=== PATIENT | female | born 1970 | race African-American/Black ===

== ENCOUNTER 2020-10-19 15:10 | Emergency (ER) | payer SELFPAY ==
[~2020-10-19] VITALS: Ht 170.2 cm; Wt 57.2 kg
[2020-10-19 15:25] VITALS: BP 136/84
[2020-10-19] MEDS ORDERED: LIDOCAINE 1%/EPI 1:100,000 10 ML VIAL. INJ ONE (16:00)
[2020-10-19] MEDS ORDERED: HYDROcodone/APAP 5/325MG 1 TAB TABLET PO ONE (16:00)
[2020-10-19] MEDS ORDERED: IBUPROFEN 600 MG TABLET. PO ONE (16:00)
[2020-10-19] MEDS ORDERED: SMZ/TMP 800/160MG TABLET. PO ONE (16:00)
[2020-10-19] MEDS ORDERED: SULF1TAB24 PO (17:25)
[2020-10-19] MEDS ORDERED: MUPI22OI2 TP (17:25)
--- NOTE | 2020-10-19 17:27 | PHYS DOC ---
Past History Past Medical History: No Pertinent History Past Surgical History: Other Additional Past Surgical Histo: R-HAND Additional Smoking Information: 1/2 PACK/DAY Alcohol Use: None Adult General Chief Complaint Chief Complaint: SKIN PROBLEM HPI HPI Patient is a 50-year-old female presents to the emergency department with chief complaint of abscess to the left side of her face for the last week. Patient states she seen urgent care after it started on day 2 and was put on a 5-day regimen of antibiotics. Patient states it did not help then became worse. Patient states she took her antibiotics as directed. Patient reports pain to the abscess site, denies any drainage. Patient denies recent fever or chills. Patient denies any other physical complaints or physical concerns. Patient denies allergies to medicines, states she does not take any medications at home, reports her primary care physician at is Dr. Arreguin. Patient denies any other physical complaints or physical concerns. Patient reports her last tetanus immunization was less than 5 years ago. Patient complains of 10 out of 10 pain. Review of Systems Review of Systems 14 body systems of review of systems have been reviewed. See HPI for pertinent positives and negative responses, otherwise all other systems are negative, nonpertinent or noncontributory. Current Medications Current Medications Current Medications Medications (Trade) Dose Ordered Sig/Allyn Start Time Stop Time Status Last Admin Dose Admin Acetaminophen/ Hydrocodone Bitart (Lortab 5/325) 1 tab 1X ONCE 10/19/20 16:00 10/19/20 16:08 DC 10/19/20 16:23 1 TAB Ibuprofen (Motrin) 600 mg 1X ONCE 10/19/20 16:00 10/19/20 16:08 DC 10/19/20 16:23 600 MG Lidocaine/ Epinephrine (Xylocaine 1%-Epi 1:100,000) 10 ml 1X ONCE 10/19/20 16:00 10/19/20 16:08 DC 10/19/20 16:00 10 ML Trimethoprim/ Sulfamethoxazole (Bactrim Ds) 1 tab 1X ONCE 10/19/20 16:00 10/19/20 16:08 DC 10/19/20 16:24 1 TAB Allergies Allergies Allergies Coded Allergies Type Severity Reaction Last Updated Verified No Known Drug Allergies 10/19/20 No Physical Exam Physical Exam Constitutional: Well developed, well nourished, no acute distress, non-toxic appearance. 50-year-old female no apparent distress. HENT: Normocephalic, atraumatic, bilateral external ears normal, oropharynx moist, no oral exudates, nose normal. Patient has 3 cm fluctuant abscess with central punctum to left face just 2 cm lateral to the oral commissure, With mild erythema, nondraining. Eyes: Conjunctiva normal, no discharge appreciated. Neck: Normal range of motion, no tenderness, supple, no stridor. No meningismus signs, no nuchal rigidity. Cardiovascular: No cyanosis appreciated, distal cap refill less than 2 seconds. Lungs & Thorax: Bilateral breath sounds clear to auscultation no adventitious lung sounds appreciated. Skin: Warm, dry, no erythema, no rash. See H EENT note for focused skin assessment. Extremities: No tenderness, no cyanosis, no clubbing, ROM intact, no edema. Neurologic: Alert and oriented X 3, normal motor function, normal sensory function, no focal deficits noted. Psychologic: Affect normal, judgement normal, mood normal. Current Patient Data Vital Signs Vital Signs Date Time Temp Pulse Resp B/P (MAP) Pulse Ox O2 Delivery O2 Flow Rate FiO2 10/19/20 16:23 16 98 10/19/20 15:25 97.9 101 136/84 (101) Room Air EKG EKG [] Radiology/Procedures Radiology/Procedures [] Heart Score C/O Chest Pain: No Risk Factors: Risk Factors: DM, Current or recent (<one month) smoker, HTN, HLP, family history of CAD, obesity. Risk Scores: Risk Factors: DM, Current or recent (<one month) smoker, HTN, HLP, family history of CAD, obesity. Course & Med Decision Making Course & Med Decision Making Pertinent Labs and Imaging studies reviewed. (See chart for details) 50-year-old female, vital signs reviewed, presents emergency department concerning abscess to face for the past week. Please see I&D note. Patient started on Bactrim DS 1 tablet given in ED today. Patient given p.o. pain medication. Patient reports last tetanus immunization less than 5 years ago, tetanus immunization update not indicated in ED today. Patient gave verbal understanding of discharge home instructions, follow-up with primary care for reevaluation of abscess and removal of abscess packing, return to ER precautions and concerns, antibiotic regimen, patient was discharged home without incident. Dragon Disclaimer Dragon Disclaimer This electronic medical record was generated, in whole or in part, using a voice recognition dictation system. Incision and Drainage Indication: Abscess left side of face Procedure: The patient was positioned appropriately and the skin over the incision site was prepped with povidone iodine. Local anesthesia was achieved with 3 cc 1% lidocaine with epinephrine. An incision was then made over the central punctum of abscess and 6 cc of purulent drainage material was expressed. Loculations were disrupted with curved forcep. The drainage cavity was then packed with 1/4 inch iodoform gauze. The patients tetanus status up-to-date prior to patient's arrival to ED, tetanus immunization not indicated for today's visit. The patient tolerated the procedure well. Complications: There were no complications. Departure Departure: Impression: Primary Impression: Abscess of face Disposition: 01 HOME / SELF CARE / HOMELESS Condition: GOOD Referrals: VÍCTOR MILLER MD (PCP) Patient Instructions: Abscess Additional Instructions: You were seen today in the emergency department for an abscess to your face. It required an incision and drainage, I also placed a packing string inside to hold the opening open to assist in the healing process. It is okay if the packing falls out, you may remove it while in the shower in 2 or 3 days. Please follow-up with your primary care physician for reevaluation of your wound soon. I have started you on an oral antibiotic that you will take twice a day for 7 days, I am also prescribing you a topical antibiotic that you will place on 3 times a day. Please return to the emergency department for worsening symptoms or other concerns. EMERGENCY DEPARTMENT GENERAL DISCHARGE INSTRUCTIONS Thank you for coming to [facility] (ED) today and trusting us with you care. We trust that you had a positivie experience in our Emergency Department. If you wish to speak to the department management, you may call the director at [phone]. YOUR FOLLOW UP INSTRUCTIONS ARE FOLLOWS: 1. Do you have a private Doctor? If you do not have a private doctor, please ask for a resource list of physicians or clinics that may be able to assist you with follow up care. 2. The Emergency Physician has interpreted your x-rays. The X-Ray specialist will also review them. If there is a change in the findings, you will be notified in 48 hours when at all possible. 3. A lab test or culture has been done, your results will be reviewed and you will be notified if you need a change in treatment. ADDITIONAL INSTRUCTIONS AND INFORMATION: 1. Your care today has been supervised by a physician who is specially trained in emergency care. Many problems require more than one evaluation for a complete diagnosis and treatment. We recommend that you schedule your follow up appointment as recommended to ensure complete treatment of you illness or injury. If you are unable to obtain follow up care and continue to have a problem, or if your condition worsens, we recommend that you return to the ED. 2. We are not able to safely determine your condition over the phone nor are we able to give sound medical advice over the phone. For these safety reasons, if you call for medical advice we will ask you to come to the ED for further evaluation. 3. If you have any questions regarding these discharge instructions please call the ED at [phone]. SAFETY INFORMATION: In the interest of safety, wellness, and injury prevention; we encourage you to wear your sealbelt, if you smoke; quite smoking, and we encourage family to use a protective helmet for bicycling and other sporting events that present an increased risk for head injury. IF YOUR SYMPTOMS WORSEN OR NEW SYMPTOMS DEVELOP, OR YOU HAVE CONCERNS ABOUT YOUR CONDITION; OR IF YOUR CONDITION WORSENS WHILE YOU ARE WAITING FOR YOUR FOLLOW UP APPOINTMENT; EITHER CONTACT YOUR PRIMARY CARE DOCTOR, THE PHYSICIAN WHOSE NAME AND NUMBER YOU WERE GIVEN, OR RETURN TO THE ED IMMEDIATELY. Scripts Mupirocin (MUPIROCIN) 22 Gm Oint...g. 1 ZO TP TID for skin infection on face, #22 GM 0 Refills Prov: MARIELA BARNES APRN 10/19/20 Sulfamethoxazole/Trimethoprim (BACTRIM DS TABLET) 1 Each Tablet 1 TAB PO BID for skin infection for 7 Days, #14 TAB 0 Refills Prov: MARIELA BARNES APRN 10/19/20 MARIELA BARNES APRN Oct 19, 2020 17:27
== END 2020-10-19 17:30 | disposition home or self-care (01) ==
LOC: ER 15:10
DX: L02.01 Cutaneous abscess of face (principal); F17.200 Nicotine dependence, unspecified, uncomplicated
CPT/HCPCS: 10060; 99284

== ENCOUNTER 2020-10-30 17:44 | Inpatient (IN) | payer SELFPAY ==
[~2020-10-30] VITALS: Ht 170.2 cm; Wt 57.0 kg
[~2020-10-30 17:44] MED LIST: MUPI22OI2 TP; SULF1TAB24 PO
--- NOTE | 2020-10-30 18:09 | PHYS DOC ---
Past History Past Medical History: No Pertinent History, Angina, CAD, Hypertension Past Surgical History: Other Additional Past Surgical Histo: R-HAND Smoking: Cigarettes Alcohol Use: None General Adult EDM: Chief Complaint: CHEST PAIN HPI: HPI: Patient is a 50 year old female who presents with above hx and complaints of chest pain. Pain is been constant all night. Today it persistent at 10 out of 10. Central chest. Nothing seemed to make the pain better. Deep breaths and movement did not seem to make it worse or better. Patient does have history of's "small NC" at [facility] 2 months ago. Patient states pain today with similar to that event. Patient has not had heart cath. Has not had stress testing. Has not had follow-up with information services assistant. Patient does have a history of hypertension. Patient does smoke. Patient denies any trauma. Patient denies any travel. Patient denies any specific ill contacts. Pt. follows with Dr. Toribio . Review of Systems: Review of Systems: Constitutional: Denies fever or chills Eyes: Denies change in visual acuity HENT: Denies nasal congestion or sore throat Respiratory: Denies cough or shortness of breath Cardiovascular: Complains of chest pain GI: Denies abdominal pain, nausea, vomiting, bloody stools or diarrhea : Denies dysuria Musculoskeletal: Denies back pain or joint pain Integument: Denies rash Neurologic: Denies headache, focal weakness or sensory changes Endocrine: Denies polyuria or polydipsia Lymphatic: Denies swollen glands Psychiatric: Denies depression or anxiety Family History: Family History: Hypertension Current Medications: Current Meds: See nursing for home meds Allergies: Allergies: Allergies Coded Allergies Type Severity Reaction Last Updated Verified No Known Drug Allergies 10/19/20 No Physical Exam: PE: Constitutional: Moderate acute distress, non-toxic appearance. [] HENT: Normocephalic, atraumatic, bilateral external ears normal, oropharynx moist, no oral exudates, nose normal. Studs, Ears, eyebrow, nose Eyes: PERRLA, EOMI, conjunctiva normal, no discharge. [] Neck: Normal range of motion, no tenderness, supple, no stridor. [] Cardiovascular: Tachycardia heart rate regular rhythm, no murmur [] PMI to the left Lungs & Thorax: Bilateral breath sounds to apex scattered wheezes on auscultation [] Abdomen: Bowel sounds normal, soft, no tenderness, no masses, no pulsatile masses. [] Skin: Warm, dry, no erythema, no rash. [] Back: No tenderness, no CVA tenderness. [] Extremities: No tenderness, no cyanosis, no clubbing, ROM intact, no edema. No cording appreciated. No cording appreciated in legs. Neurologic: Alert and oriented X 3, normal motor function, normal sensory function, no focal deficits noted. [] Psychologic: Affect anxious, judgement normal, mood normal. [] EKG: EKG: My interpretation EKG shows sinus rhythm at 94 bpm. Does have bimodal P waves and left axis deviation. Has a left anterior fascicular block. LVH. Does have prolonged QT interval at 388 ms, QTc interval is 491 ms. Abnormal EKG. EKG read was 1752 minutes. [] Radiology/Procedures: Radiology/Procedures: [][place] [address] IMAGING REPORT Signed PATIENT: DORY RYAN LACCOUNT: [id number] : 1970 LOCATION: ER AGE: 50 SEX: F EXAM STATUS: PRE ER ORD. PHYSICIAN: BRUCE PINEDA MD REASON: cp PROCEDURE: PORTABLE CHEST 1V AP chest. HISTORY: Chest pain AP view was taken of the chest. The heart is enlarged. There is no definite effusion. There are no confluent infiltrates. IMPRESSION: 1. Cardiomegaly. 2. No acute infiltrates. Electronically signed by: Pérez Gross MD (10/30/2020 6:32 PM) [facility] DICTATED AND SIGNED BY: PÉREZ GROSS MD DATE: 10/30/201830 CC: BRUCE PINEDA MD; VÍCTOR TORIBIO MD ~MTH0 0 Heart Score: C/O Chest Pain: Yes HEART Score for Chest Pain: HEART Score for Chest Pain Response (Comments) Value History Moderately Suspicious 1 ECG Nonspecific Repolarizatio 1 Age >45 - < 65 1 Risk Factors 1 or 2 Risk Factors 1 Troponin < Normal Limit 0 Total 4 Risk Factors: Risk Factors: DM, Current or recent (<one month) smoker, HTN, HLP, family history of CAD, obesity. Risk Scores: Score 0 - 3: 2.5% MACE over next 6 weeks - Discharge Home Score 4 - 6: 20.3% MACE over next 6 weeks - Admit for Clinical Observation Score 7 - 10: 72.7% MACE over next 6 weeks - Early Invasive Strategies Course & Med Decision Making: Course & Med Decision Making Pertinent Labs and Imaging studies reviewed. (See chart for details) Patient's pain gradually improved proved from 10-10 to 6 out of 10. Patient presentation ,testing and treatment plan discussed with Dr. Rodríguez, Admit to Tele with Cardiology consult. Impression: 1. Chest pain 2. Hypertension 3. History of coronary artery disease 4. Tobacco use 5. Hx. " NC" 2 months ago at [facility] Pt.requesting discharge at 1930. Was to leave AMA. Pt. now deciding to stay 2000 Hrs.. Pt. now deciding to leave 2015 hrs. Pt. now again deciding to stay 20 30 hrs. [] Duyen Disclaimer: Duyen Disclaimer: This electronic medical record was generated, in whole or in part, using a voice recognition dictation system. Departure Departure: Referrals: VÍCTOR TORIBIO MD (PCP) Duyen Disclaimer This chart was dictated in whole or in part using Voice Recognition software in a busy, high-work load, and often noisy Emergency Department environment. It may contain unintended and wholly unrecognized errors or omissions. BRUCE PINEDA MD Oct 30, 2020 18:09
[2020-10-30] MEDS: IV RINGERS SOLUTION,LACTATED 1,000 ML IV SCH ×2 (18:15→21:09)
[2020-10-30] MEDS ORDERED: ASPIRIN CHEWABLE 81 MG TABLET. PO ONE (18:15)
[2020-10-30 18:33] LABS: BASO # 0.1 x10^3/uL (0.0-0.2); BASO % 1 % (0-3); EOS # 0.1 x10^3/uL (0.0-0.7); EOS % 1 % (0-3); HEMATOCRIT 45.3 % (36.0-47.0); HEMOGLOBIN 14.4 g/dL (12.0-15.5); LYMPH # 3.4 x10^3/uL (1.0-4.8); LYMPH % 43 % (24-48); MEAN CORPUSCULAR HEMOGLOBIN 28 pg (25-35); MEAN CORPUSCULAR HGB CONC 32 g/dL (31-37); MEAN CORPUSCULAR VOLUME 87 fL (79-100); MONO # 0.8 x10^3/uL (0.0-1.1); MONO % 10 % (0-9); NEUT # 3.7 x10^3uL (1.8-7.7); NEUT % 47 % (31-73); PLATELET COUNT 272 x10^3/uL (140-400); RED BLOOD COUNT 5.22 x10^6/uL (3.50-5.40); RED CELL DISTRIBUTION WIDTH 15.9 % (11.5-14.5)
--- NOTE | 2020-10-30 18:34 | RAD ---
AP chest. HISTORY: Chest pain AP view was taken of the chest. The heart is enlarged. There is no definite effusion. There are no co nfluent infiltrates. IMPRESSION: 1. Cardiomegaly. 2. No acute infiltrates. Electronically signed by: Pérez Gross MD (10/30/2020 6:32 PM) [facility]
[2020-10-30] MEDS ORDERED: ONDANSETRON PF 4 MG/2 ML VIAL. IVP PRN (19:30)
[2020-10-30] MEDS ORDERED: ACETAMINOPHEN 325 MG TABLET PO PRN (19:30)
[2020-10-30] MEDS ORDERED: MORPHINE SULFATE 2 MG/ML DISP.SYRIN. IVP PRN (19:30)
[2020-10-30] MEDS ORDERED: ENOXAPARIN ** NOTE DOSE ** SYRINGE SQ ONE (19:30)
[2020-10-30 19:37] LABS: CALCIUM 9.6 mg/dL (8.5-10.1); CREATININE 0.7 mg/dL (0.6-1.0); GFR 107.6; POTASSIUM 4.1 mmol/L (3.5-5.1)
[2020-10-30 19:50] LABS: ALBUMIN 3.5 g/dL (3.4-5.0); DIRECT BILIRUBIN 0.4 mg/dL (0.0-0.2); MAGNESIUM 1.7 mg/dL (1.8-2.4); TOTAL BILIRUBIN 1.1 mg/dL (0.2-1.0); TOTAL PROTEIN 7.3 g/dL (6.4-8.2)
[2020-10-30] MEDS: IPRATRPIUM/ALBUTEROL 0.5/2.5MG 3 ML NEBU. NEB SCH (20:00)
[2020-10-30 20:53] VITALS: BP 125/89
--- NOTE | 2020-10-30 21:14 | NUR ---
The patient, DORY RYAN, 50 y/o, F admitted by RADHA AKHTAR MD, was given written information regarding hospital policies, unit procedures and contact persons. Valuables were checked and logged. Pt was angry about the visitation rules. Pt stormed down to the entrance of the hospital to talk to her boyfriend. Staff escorted pt out to see her boyfriend and she walked back. Call light at reach.
--- NOTE | 2020-10-30 22:00 | NUR ---
Pt yelling "hello." Staff found pt lying upside down in the bed. She c/o feeling hot and wanting a fan. This nurse turned fan at the foot of the bed on for pt. Will continue to monitor.
[2020-10-30 23:09] VITALS: BP 116/71
--- NOTE | 2020-10-31 00:30 | NUR ---
Pt c/o nausea and vomiting. No vomiting heard or observed. Zofran given for comfort. Will continue to monitor.
[2020-10-31 00:53] LABS: CALCIUM 8.8 mg/dL (8.5-10.1); CREATININE 0.8 mg/dL (0.6-1.0); GFR 92.2
[2020-10-31 01:25] LABS: BASO % 0 % (0-3); EOS # 0.1 x10^3/uL (0.0-0.7); EOS % 1 % (0-3); HEMATOCRIT 40.3 % (36.0-47.0); LYMPH # 6.6 x10^3/uL (1.0-4.8); LYMPH % 57 % (24-48); MEAN CORPUSCULAR HEMOGLOBIN 28 pg (25-35); MEAN CORPUSCULAR HGB CONC 32 g/dL (31-37); MEAN CORPUSCULAR VOLUME 86 fL (79-100); MONO # 1.2 x10^3/uL (0.0-1.1); MONO % 11 % (0-9); NEUT # 3.6 x10^3uL (1.8-7.7); NEUT % 31 % (31-73); PLATELET COUNT 254 x10^3/uL (140-400); RED CELL DISTRIBUTION WIDTH 15.7 % (11.5-14.5); WHITE BLOOD COUNT 11.5 x10^3/uL (4.0-11.0)
--- NOTE | 2020-10-31 04:20 | NUR ---
we were busy in the ER at this time and later when I planned to come up the hospital we had an unresponsive pt come in
[2020-10-31] MEDS: IPRATRPIUM/ALBUTEROL 0.5/2.5MG 3 ML NEBU. NEB SCH ×3 (04:28→15:50)
[2020-10-31 05:41] VITALS: BP 121/89
--- NOTE | 2020-10-31 06:12 | NUR ---
Pt rested quietly in bed the rest of the night. During rounds observed pt lying on side, talking into cell phone multiple times. Amount of sleep is indiscernible. Pt has not verbalized complaints or pain since initial medication administration. Will continue to monitor.
[2020-10-31] MEDS ORDERED: ASPIRIN 325 MG TABLET PO SCH (09:00)
[2020-10-31] MEDS ORDERED: ENOXAPARIN ** NOTE DOSE ** SYRINGE SQ SCH (09:00)
[2020-10-31 11:01] VITALS: BP 132/69
--- NOTE | 2020-10-31 12:37 | NUR ---
Nursing note Patient states "I would like to check myself out", this nurse communicated to patient that will round later today and it would be better to wait for him to assure cardiac clearance/safety. Patient states these beds are uncomfortable and is upset that boyfriend is unable to be here during her stay. This nurse communicated that he could come during visiting hours but patient was dismissive and seemed uninterested.
[2020-10-31] MEDS ORDERED: CONTRAST GIVEN. MC PRN (14:00)
[2020-10-31] MEDS ORDERED: IOHEXOL 350 MG/ML 100 ML VIAL. IV ONE (14:00)
--- NOTE | 2020-10-31 15:04 | NUR ---
Life Skills Consultant Consultation Page out to on-call senior accounting associate done per MT. Radha
[2020-10-31 15:43] VITALS: BP 131/98
[2020-10-31 15:49] LABS: HDLC 43 mg/dL (40-60); LDLC 105 mg/dL (0-100); THYROID STIM HORMONE (TSH) < 0.007 uIU/mL (0.358-3.740); TRIGLYCERIDES 83 mg/dL (0-150); VLDLC 16 mg/dL (0-40)
--- NOTE | 2020-10-31 16:08 | RAD ---
Site ID: [id number] EXAMINATION: CTA chest. Technique: Axial images with coronal and sagittal reconstructions with MIP technique are performed of chest with angiogram protocol. 100 mL of Isovue-370 administered intravenously. One or more of the following radiation dose reduction techniques was used: automated exposure control , adjustment of mA and/or KV according to patient size, and/or utilization of iterative reconstructio n technique. HISTORY: 50 years Female Reason: CHEST PAIN, COUGH, SOB and Elevated D Dimer / Spl. Instructions: / History: . COMPARISON: None. FINDINGS: There is good opacification of the pulmonary arteries with no filling defects to suggest pulmonary em bolism. The thoracic aorta is normal in caliber. No opacification of the aorta is seen at the phase o f the exam and the therefore evaluation for from dissection cannot be performed. There is no mediastinal mass. The heart size is a enlarged. There is no pericardial effusion. There i s a small right pleural effusion. The lungs demonstrate the mild septal thickening more prominent in the lower lobes and minimal ground glass opacity in the right lung base. There is no airspace consolidation. The osseous structures demonstrate minimal degenerative changes. Sections in the upper abdomen appear grossly unremarkable. IMPRESSION: 1. No pulmonary embolism. 2. Small right pleural effusion and associated pulmonary findings could relate to vascular congestion . Atypical infection could be considered. Electronically signed by: Huan Green MD (10/31/2020 4:05 PM) [id number]
--- NOTE | 2020-10-31 17:23 | HP ---
ADMIT DATE: 10/30/2020 HISTORY OF PRESENT ILLNESS: The patient is a 50-year-old -Maced[place] female patient who presented to the Emergency Room with a complaint of chest pain that she describes as retrosternal, 10/10 in severity. Nothing seems to make the pain better, in particular deep breath and movement did not seem to make it worse or better. The patient does have a history of small myocardial infarction at 2 months ago. She states that her pain is similar to that event. She said that she cannot recall having a heart catheterization, but she did have a stress test according to her. She has a history of hypertension, history of the fact that she is a smoker also. Her primary care physician is ____. She was extensively investigated in the Emergency Room. Has had an EKG which showed that she was in sinus rhythm at 94 beats per minute with bimodal ____ waves and left axis deviation, has a left anterior fascicular block, left ventricular hypertrophy and prolonged QT interval. Her chest x-ray showed cardiomegaly, no acute infiltrate. Her first set of cardiac enzyme showed troponin less than 0.017. The patient was admitted to do 2 more sets of cardiac enzymes, check fasting lipid profile and consult the Cardiology team. Her lab work showed prothrombin time, INR and APTT normal; however, D-dimer was high at 2.12. She had this cough that is mostly dry hacking cough. Denied any phlegm or hemoptysis. PAST MEDICAL HISTORY: Significant for hypertension, hypothyroidism and history of coronary artery disease and myocardial infarction. PAST SURGICAL HISTORY: Significant for ____ to right hand. ALLERGIES: She has no known drug allergies. MEDICATIONS: She is currently on following medications:. She was on sulfamethoxazole and trimethoprim and mupirocin. FAMILY HISTORY: She has 3 brothers, 2 older and 1 younger, all healthy. Her father is still alive and apparently healthy. Mother in her 40s because of seizures. SOCIAL HISTORY: She is , has 4 sons. Although she claims she quit smoking, she continued to smoke 4-5 cigarettes, although she used to smoke much more, a pack a day or more. Does not drink alcohol or recreational drugs. She is currently unemployed. She used to work as a [employer]. PHYSICAL EXAMINATION: GENERAL: On arrival to the Emergency Room, she looked well and was clearly in no apparent respiratory distress. No pallor, jaundice, cyanosis or thyromegaly. No jugular venous distention. No limb edema. VITAL SIGNS: Her heart rate was 92, blood pressure is 124/74, temperature was 98.6, respiratory rate 20, and oxygen saturation was 98%. HEAD, EYES, EARS, NOSE, AND THROAT: Normocephalic, atraumatic. NECK: Supple. HEART: Showed normal first and second heart sounds, no gallop or murmur. CHEST: Clear to auscultation. No crepitation or rhonchi. ABDOMEN: Distended, soft, nontender. NEUROLOGIC: She is awake, alert, responding appropriately. All cranial nerves intact. She moves extremities without difficulty. LABORATORY DATA: Her white cell count was 8000, hemoglobin 14, hematocrit 45, MCV 87 and platelet count 272,000 with normal manual differential. Her prothrombin time was 11.8, INR of 1.1, APTT was 26 and D-dimer was 2.12. Her chemistry showed a serum sodium 143, potassium 4.1, chloride 108, bicarbonate 25, anion gap of 10, BUN 10, creatinine 0.7. Estimated GFR was 107, glucose 102, calcium was 9.6, her magnesium was 1.7. Total bilirubin, AST, ALT, alkaline phosphatase were normal. Her beta natriuretic peptide was 10,637. Total protein 7.3, albumin was 3.5 and her first set of cardiac enzyme was less than 0.017. ASSESSMENT AND PLAN: The patient was admitted, continued on Lovenox, aspirin, and morphine. We will do 2 more sets of cardiac enzyme. Would consult the cigar head piercer ____ arrange for a CT angio of the chest to rule out PE given her markedly elevated BNP. AMANDA/BEBETO/STEW DR: Merrill TID: [id number]
--- NOTE | 2020-10-31 17:31 | NUR ---
Discharge Note Patient read discharge instructions, scripts handed to patient, all questions answered in full. Trust Manager information given to patient for follow up. This conventional underwriter spoke to Dr. Adan whom was made aware of patient discharge. Dr. Adan communicated his office will call patient to schedule appointments Patient declines any needs at this time Invasive line discontinued per this nurse, no complications. Patient walked out with significant other.
--- NOTE | 2020-11-01 07:17 | EKG ---
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
== END 2020-10-31 17:47 | disposition home or self-care (01) | DRG 313 ==
LOC: ER 17:44 → 1 SOUTH 19:22
PROVIDERS: ADMIT Internal Medicine; ATTEND Internal Medicine
DX: R07.89 Other chest pain (principal); F17.200 Nicotine dependence, unspecified, uncomplicated; I25.10 Atherosclerotic heart disease of native coronary artery without angina pectoris; I44.4 Left anterior fascicular block; E03.9 Hypothyroidism, unspecified; I10 Essential (primary) hypertension; Z82.49 Family history of ischemic heart disease and other diseases of the circulatory system; I25.2 Old myocardial infarction; Z56.0 Unemployment, unspecified
CPT/HCPCS: 36415; 71045; 71275; 80048; 80061; 80076; 82550; 83690; 83735; 83880; 84443; 84484; 85025; 85379; 85610; 85730; 94640; 94760; 96372; J1650; J2270; J2405; J7120; 99285-25

== ENCOUNTER 2020-12-16 00:49 | Emergency (ER) | payer MEDICAID ==
[~2020-12-16] VITALS: Ht 170.2 cm; Wt 56.0 kg
--- NOTE | 2020-12-16 01:12 | PHYS DOC ---
Past History Past Medical History: No Pertinent History, Angina, CAD, Hypertension Past Surgical History: No Surgical History Additional Past Surgical Histo: R-HAND Smoking: Cigarettes Alcohol Use: None General Adult EDM: Chief Complaint: SHORTNESS OF BREATH HPI: HPI: 50-year-old female presents to the emergency department complaining of shortness of breath for the past 2 days worsening tonight without any inciting event. She reports that she has a history of CHF, but no other cardiac history. She denies any chest pain today. She also complains of lower left side pain, over her left hips that is unrelated to any injury or trauma. The patient denies nausea, vomiting, fever, chills, chest pain, abdominal pain, urinary symptoms, cough, recent trauma, or any other complaints. Admits to recent history of Marijuana Review of Systems: Review of Systems: Constitutional: Denies fever or chills. Eyes: Denies change in vision, pain. HENT: Denies congestion or sore throat. Respiratory: Admits to shortness of breath; denies cough. Cardiovascular: Denies chest pain or edema. GI: Denies abdominal pain, nausea. : Denies change in urination, dysuria. Musculoskeletal: Denies extremity pain, or trauma. Left "side" pain, pointing to the hip area Skin: Denies rash, skin change. Neurologic: Denies headache, focal weakness. Psychiatric: Denies depression or anxiety. All other systems reviewed as negative except for what was mentioned in the HPI. Family History: Family History: non contributory Allergies: Allergies: Allergies Coded Allergies Type Severity Reaction Last Updated Verified No Known Drug Allergies 10/19/20 No Physical Exam: PE: Constitutional: Mild distress, appears anxious. HENT: Atraumatic, bilateral external ears normal, nose normal. Eyes: PERRLA, EOMI, conjunctiva normal, no discharge. Neck: Normal range of motion, supple, no stridor. Cardiovascular: Heart rate regular rhythm. 2+ radial pulses Lungs & Thorax: No respiratory distress, symmetrical expansion. Bilateral breath sounds clear to auscultation Abdomen: Soft, no tenderness Skin: Warm, dry. Extremities: No tenderness, no cyanosis, full ROM of lower extremities, no edema. Patient complains of left hip tenderness, but there is no tenderness or other findings in this area. Neurologic: Alert and oriented X 3, normal motor function, normal sensory function, no focal deficits noted. Non ataxic gait. GCS 15. Current Patient Data: Labs: Laboratory Tests Test 12/16/20 01:35 12/16/20 02:20 White Blood Count 8.0 x10^3/uL (4.0-11.0) Red Blood Count 5.46 x10^6/uL (3.50-5.40) H Hemoglobin 14.8 g/dL (12.0-15.5) Hematocrit 45.9 % (36.0-47.0) Mean Corpuscular Volume 84 fL (79-100) Mean Corpuscular Hemoglobin 27 pg (25-35) Mean Corpuscular Hemoglobin Concent 32 g/dL (31-37) Red Cell Distribution Width 15.7 % (11.5-14.5) H Platelet Count 230 x10^3/uL (140-400) Neutrophils (%) (Auto) 28 % (31-73) L Lymphocytes (%) (Auto) 60 % (24-48) H Monocytes (%) (Auto) 11 % (0-9) H Eosinophils (%) (Auto) 1 % (0-3) Basophils (%) (Auto) 1 % (0-3) Neutrophils # (Auto) 2.2 x10^3uL (1.8-7.7) Lymphocytes # (Auto) 4.8 x10^3/uL (1.0-4.8) Monocytes # (Auto) 0.8 x10^3/uL (0.0-1.1) Eosinophils # (Auto) 0.1 x10^3/uL (0.0-0.7) Basophils # (Auto) 0.1 x10^3/uL (0.0-0.2) Segmented Neutrophils % 15 % (35-66) L Band Neutrophils % 1 % (0-9) Lymphocytes % 74 % (24-48) H Atypical Lymphocytes % (Manual) 2 % (0-0) H Monocytes % 7 % (0-10) Eosinophils % 1 % (0-5) Platelet Estimate Adequate (ADEQUATE) Troponin I Quantitative 0.020 ng/mL (0-0.055) D-Dimer (Paige) 1.20 mg/L (0.00-0.50) H Sodium Level 142 mmol/L (136-145) Potassium Level 4.3 mmol/L (3.5-5.1) Chloride Level 107 mmol/L (98-107) Carbon Dioxide Level 22 mmol/L (21-32) Anion Gap 13 (6-14) Blood Urea Nitrogen 16 mg/dL (7-20) Creatinine 0.7 mg/dL (0.6-1.0) Estimated GFR (Cockcroft-Gault) 107.6 Glucose Level 175 mg/dL (70-99) H Calcium Level 8.4 mg/dL (8.5-10.1) L VK-Wep-Q-Type Natriuretic Peptide 4578 pg/mL (0-124) H Vital Signs: Vital Signs Date Time Temp Pulse Resp B/P (MAP) Pulse Ox O2 Delivery O2 Flow Rate FiO2 12/16/20 00:56 98.8 91 20 106/83 100 Room Air EKG: EKG: Normal sinus rhythm rate of 85, LVH related changes in the precordial leads, atrial enlargement pattern, no ectopic beats, left axis deviation, normal UT, QRS, and QTc intervals. Impression: Abnormal EKG, no STEMI. interpreted by me, Marvin Pascual D.O. Radiology/Procedures: Radiology/Procedures: AP chest x-ray HISTORY: Shortness of breath. COMPARISON: CT chest October 31, 2020 FINDINGS: Massive cardiomegaly is stable. Mediastinal silhouette is normal. No pneumothorax, pulmonary opacities or pleural effusions. Slight thoracic scoliosis. IMPRESSION: No acute process. Cardiomegaly is stable. Electronically signed by: Clinton Calero MD (12/16/2020 1:53 AM) Heart Score: C/O Chest Pain: No Course & Med Decision Making: Course & Med Decision Making Patient's work-up included a D-dimer which was positive. Upon going into the room to let the patient know the results and the next steps including a CTA, the patient became verbally aggressive, abusive. She was upset that she had been there for 2.5 hours. I apologized and explained that sometimes workups in the ER take a while to result. I further explained to her that the next test included a study to rule out a PE amongst other diagnoses. She did not want to stay for this study. She was offered pain medication. She requested to be discharged so that she can go home. I explained to her that we will have to sign her out AGAINST MEDICAL ADVICE because her work-up would not be complete if she left at this time. I counseled her on the risks of leaving his medical advice and she continued to be verbally aggressive and escalate. She had capacity to make her own medical decisions during the time of my evaluation and discussion. She continued to be verbally aggressive towards both me and my nursing staff. Upon being offered toradol for her hip pain, she refused. She continued to berate nursing staff on her way out of the ER. Departure Departure: Impression: Primary Impression: Shortness of breath Disposition: HOME / SELF CARE / HOMELESS Condition: STABLE Referrals: VÍCTOR MILLER MD (PCP) Patient Instructions: Shortness of Breath, [id number] Additional Instructions: You have elected to leave the hospital AGAINST MEDICAL ADVICE. Please return to the emergency department if you have any further concerns or change your mind. It is important to realize that we can only evaluate you during the time that you are in her department. Occasionally health conditions can worsen upon leaving the emergency department. If this were to happen, please return to and allow us the opportunity to reevaluate you. It is a pleasure to take care of your health needs. Return to the ER if your symptoms worsen, do not improve, or if you develop additional symptoms that are concerning to you Scripts No Active Prescriptions or Reported Meds MARVIN PASCUAL DO Dec 16, 2020 01:12
[2020-12-16 01:50] LABS: BASO # 0.1 x10^3/uL (0.0-0.2); BASO % 1 % (0-3); EOS # 0.1 x10^3/uL (0.0-0.7); EOS % 1 % (0-3); HEMATOCRIT 45.9 % (36.0-47.0); HEMOGLOBIN 14.8 g/dL (12.0-15.5); LYMPH # 4.8 x10^3/uL (1.0-4.8); LYMPH % 60 % (24-48); MEAN CORPUSCULAR HEMOGLOBIN 27 pg (25-35); MEAN CORPUSCULAR HGB CONC 32 g/dL (31-37); MEAN CORPUSCULAR VOLUME 84 fL (79-100); MONO # 0.8 x10^3/uL (0.0-1.1); MONO % 11 % (0-9); NEUT # 2.2 x10^3uL (1.8-7.7); NEUT % 28 % (31-73); PLATELET COUNT 230 x10^3/uL (140-400); RED BLOOD COUNT 5.46 x10^6/uL (3.50-5.40); RED CELL DISTRIBUTION WIDTH 15.7 % (11.5-14.5)
--- NOTE | 2020-12-16 01:55 | RAD ---
AP chest x-ray HISTORY: Shortness of breath. COMPARISON: CT chest October 31, 2020 FINDINGS: Massive cardiomegaly is stable. Mediastinal silhouette is normal. No pneumothorax, pulmonar y opacities or pleural effusions. Slight thoracic scoliosis. IMPRESSION: No acute process. Cardiomegaly is stable. Electronically signed by: Clinton Calero MD (12/16/2020 1:53 AM) [facility]
[2020-12-16 02:13] LABS: % ATYL 2 % (0-0); % BANDS 1 % (0-9); % EOS 1 % (0-5); % LYMPHS 74 % (24-48); % MONOS 7 % (0-10); % SEGS 15 % (35-66); PLT ESTIMATE ADEQUATE (ADEQUATE)
[2020-12-16 02:45] LABS: CALCIUM 8.4 mg/dL (8.5-10.1); CREATININE 0.7 mg/dL (0.6-1.0); GFR 107.6; POTASSIUM 4.3 mmol/L (3.5-5.1)
--- NOTE | 2020-12-16 02:53 | EKG ---
[address] [address] Test Date: 2020-12-16 Test Time: 00:57:51 Pat Name: DORY RYAN Department: Room: Gender: F Kitchen Lead: KYE : 1970 Requested By: YAW JOHN Order Number: [id number] Reading MD: Measurements Intervals [place] Rate: 85 P: 80 MS: 154 QRS: -70 QRSD: 94 T: 77 QT: 398 QTc: 480 Interpretive Statements SINUS RHYTHM BIATRIAL ENLARGEMENT ABNORMAL LEFT AXIS DEVIATION LEFT ANTERIOR FASCICULAR BLOCK CONSIDER LEFT VENTRICULAR HYPERTROPHY T ABNORMALITY IN LATERAL LEADS PROLONGED QT ABNORMAL ECG RI6.02 No previous ECG available for comparison
[2020-12-16] MEDS ORDERED: CONTRAST GIVEN. MC PRN (03:15)
[2020-12-16] MEDS ORDERED: IOHEXOL 350 MG/ML 100 ML VIAL. IV ONE (03:15)
[2020-12-16] MEDS ORDERED: KETOROLAC 15 MG/ML VIAL. IVP ONE (03:15)
[2020-12-16 03:30] VITALS: BP 108/59
== END 2020-12-16 03:30 | disposition left against medical advice (07) ==
LOC: ER 00:49
DX: R06.02 Shortness of breath (principal); M25.552 Pain in left hip; I25.10 Atherosclerotic heart disease of native coronary artery without angina pectoris; I10 Essential (primary) hypertension; F17.210 Nicotine dependence, cigarettes, uncomplicated
CPT/HCPCS: 36415; 71045; 80048; 83880; 84484; 85007; 85025; 85379; 93005; 96374; 99285; J1885

== ENCOUNTER 2021-02-27 08:25 | Emergency (ER) | payer MEDICAID ==
[~2021-02-27] VITALS: Ht 170.2 cm; Wt 56.0 kg
[2021-02-27 08:27] VITALS: BP 107/72
[2021-02-27] MEDS ORDERED: IV NORMAL SALINE 1,000ML 1,000 ML IV SCH (08:30)
--- NOTE | 2021-02-27 08:45 | RAD ---
Exam Date: 02/27/2021 8:34 AM XR CHEST 1V Indication: Reason: overdose / Spl. Instructions: / History: . Comparison: December 16, 2020 FINDINGS/ IMPRESSION: The cardiac silhouette is enlarged. Prominent perihilar and basilar opacities suggest pulmonary aftab a, though atelectasis or pneumonia are not excluded. No appreciable pleural effusion or pneumothorax . Electronically signed by: Emile Stokes MD (02/27/2021 8:43 AM) [id number]
--- NOTE | 2021-02-27 09:07 | EKG ---
[address] [address] Test Date: 2021-02-27 Test Time: 08:33:02 Pat Name: DORY RYAN Department: Room: Gender: F Paste Maker: ESAU : 1970 Requested By: WESTON GUTIÉRREZ Order Number: [id number] Reading MD: Noel Polanco Measurements Intervals Stephen Rate: 85 P: 77 [place]: 160 QRS: -63 QRSD: 98 T: 247 QT: 430 QTc: 512 Interpretive Statements SINUS ARRHYTHMIA BIATRIAL ENLARGEMENT LEFT ANTERIOR FASCICULAR BLOCK LVH WITH REPOLARIZATION ABNORMALITY NON SPECIFIC ST-T WAVE CHANGES PROLONGED QT ABNORMAL ECG Electronically Signed On 03-06-2021 10:48:18 [employer] by Noel Polanco
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
== END 2021-02-27 09:25 | disposition left against medical advice (07) ==
LOC: ER 08:25
DX: R42 Dizziness and giddiness (principal); I11.0 Hypertensive heart disease with heart failure; I25.10 Atherosclerotic heart disease of native coronary artery without angina pectoris; I50.9 Heart failure, unspecified; F41.9 Anxiety disorder, unspecified; F32.9 Major depressive disorder, single episode, unspecified; F17.210 Nicotine dependence, cigarettes, uncomplicated
CPT/HCPCS: 71045; 93005; 99283

== ENCOUNTER 2021-03-10 14:46 | Emergency (ER) | payer MEDICAID ==
[~2021-03-10] VITALS: Ht 170.2 cm; Wt 70.0 kg
[2021-03-10 14:58] VITALS: BP 114/76
--- NOTE | 2021-03-10 15:09 | PHYS DOC ---
Past History Past Medical History: No Pertinent History, Angina, CAD, Hypertension Additional Past Medical Histor: gout Past Surgical History: Other Additional Past Surgical Histo: R-HAND Smoking: Cigarettes Alcohol Use: None General Adult EDM: Chief Complaint: EYE PROBLEMS HPI: HPI: 50-year-old female presents with bilateral eye irritation. The patient pending cosmetic contact lenses earlier today and her eyes started to feel like they are burning. She took them both out but continues to have eye irritation, swelling, and burning sensation. She tried to put some Visine in her eyes but this did not help. She states that the entire contact came out but her eyes do feel like there is something in the, "like sand". Review of Systems: Review of Systems: Constitutional: Denies fever or chills Eyes: Bilateral eye irritation and swelling HENT: Denies nasal congestion or sore throat Respiratory: Denies cough or shortness of breath Cardiovascular: Denies chest pain or edema GI: Denies abdominal pain, nausea, vomiting, bloody stools or diarrhea : Denies dysuria Musculoskeletal: Denies back pain or joint pain Integument: Denies rash Neurologic: Denies headache, focal weakness or sensory changes Endocrine: Denies polyuria or polydipsia Lymphatic: Denies swollen glands Psychiatric: Denies depression or anxiety Allergies: Allergies: Allergies Coded Allergies Type Severity Reaction Last Updated Verified No Known Drug Allergies 03/10/21 No Physical Exam: PE: Constitutional: Well developed, well nourished, no acute distress, non-toxic appearance. [] HENT: Normocephalic, atraumatic, bilateral external ears normal, oropharynx moist, no oral exudates, nose normal. [] Eyes: PERRLA, EOMI, conjunctiva normal, bilateral upper and lower eyelid swelling [] Neck: Normal range of motion, no tenderness, supple, no stridor. [] Cardiovascular: Heart rate regular rhythm, no murmur [] Lungs & Thorax: Bilateral breath sounds clear to auscultation [] Abdomen: Bowel sounds normal, soft, no tenderness, no masses, no pulsatile masses. [] Skin: Warm, dry, no erythema, no rash. [] Back: No tenderness, no CVA tenderness. [] Extremities: No tenderness, no cyanosis, no clubbing, ROM intact, no edema. [] Neurologic: Alert and oriented X 3, normal motor function, normal sensory function, no focal deficits noted. [] Psychologic: Affect normal, judgement normal, mood normal. [] Current Patient Data: Vital Signs: Vital Signs Date Time Temp Pulse Resp B/P (MAP) Pulse Ox O2 Delivery O2 Flow Rate FiO2 03/10/21 14:58 97.6 70 18 114/76 (89) 96 Room Air EKG: EKG: [] Radiology/Procedures: Radiology/Procedures: [] Heart Score: C/O Chest Pain: N/A Risk Factors: Risk Factors: DM, Current or recent (<one month) smoker, HTN, HLP, family history of CAD, obesity. Risk Scores: Score 0 - 3: 2.5% MACE over next 6 weeks - Discharge Home Score 4 - 6: 20.3% MACE over next 6 weeks - Admit for Clinical Observation Score 7 - 10: 72.7% MACE over next 6 weeks - Early Invasive Strategies Course & Med Decision Making: Course & Med Decision Making Pertinent Labs and Imaging studies reviewed. (See chart for details) I applied tetracaine drops to both eyes and fluorescein dye. There was mild increased uptake at the medial border of the retina bilaterally. I believe this is due to the general irritation and swelling. I saw no foreign bodies or sign of corneal abrasion. I have given the patient Benadryl orally and prednisone. I will discharge her with a prescription for Pataday eyedrops. I have advised that she not use any other eyedrops other than rewetting drops. She is stable for discharge at this time. [] Dragon Disclaimer: Dragmagda Disclaimer: This electronic medical record was generated, in whole or in part, using a voice recognition dictation system. Departure Departure: Impression: Primary Impression: Allergic eye reaction Disposition: HOME / SELF CARE / HOMELESS Condition: STABLE Referrals: VÍCTOR MILLER MD (PCP) Patient Instructions: Olopatadine eye solution Scripts Olopatadine Hcl (PATADAY) 2.5 Ml Drops 1 DROP EACHEYE DAILY for allergic reaction, #1 BOTTLE 0 Refills Prov: VIKY MTZ DO 03/10/21 VIKY MTZ DO Mar 10, 2021 15:09
[2021-03-10] MEDS ORDERED: diphenhydrAMINE HCL 25 MG CAPSULE PO ONE (15:15)
[2021-03-10] MEDS ORDERED: predniSONE 20 MG TABLET PO ONE (15:15)
[2021-03-10] MEDS ORDERED: TETRACAINE 0.5% OPHTH SOLUTION 4ML BOTTLE. OU ONE (15:15)
[2021-03-10] MEDS ORDERED: FLUORESCEIN 1MG EYE STRIP. OU ONE (15:15)
[2021-03-10] MEDS ORDERED: OLOP2.5D12 EACHEYE (15:31)
== END 2021-03-10 15:35 | disposition home or self-care (01) ==
LOC: ER 14:46
DX: H01.116 Allergic dermatitis of left eye, unspecified eyelid (principal); H01.113 Allergic dermatitis of right eye, unspecified eyelid; F17.210 Nicotine dependence, cigarettes, uncomplicated
CPT/HCPCS: 99283; J7512; Q0163

== ENCOUNTER 2021-06-26 07:32 | Emergency (ER) | payer MEDICAID ==
[~2021-06-26] VITALS: Ht 170.2 cm; Wt 75.0 kg
[~2021-06-26 07:32] MED LIST changes: +OLOP2.5D12 EACHEYE
--- NOTE | 2021-06-26 08:10 | PHYS DOC ---
Past History Past Medical History: No Pertinent History, Angina, CAD, Hypertension Additional Past Medical Histor: gout Past Surgical History: Other Additional Past Surgical Histo: R-HAND Smoking: Cigarettes Alcohol Use: Rarely General Adult EDM: Chief Complaint: SEXUALLY TRANSMITTED DISEASE HPI: HPI: Patient is a 50-year-old female coming in for STD check. Patient states that a female called her to tell her that her boyfriend was around and that he gave her gonorrhea. Patient has complained of intermittent low abdominal pain for the past few days. Does not have pain right now. She denies any vaginal bleeding or discharge. Denies dyspareunia. Denies any hematuria or dysuria. Review of Systems: Review of Systems: All other systems within normal limits except for as noted in the HPI Allergies: Allergies: Allergies Coded Allergies Type Severity Reaction Last Updated Verified No Known Drug Allergies 06/26/21 No Physical Exam: PE: Constitutional: Well developed, well nourished, no acute distress, non-toxic appearance. [] HENT: Normocephalic, atraumatic, bilateral external ears normal, nose normal. [] Eyes: PERRLA, conjunctiva normal, no discharge. [] Neck: No rigidity, supple, no stridor. [] Cardiovascular: Regular rate and rhythm, brisk cap refill [] Lungs & Thorax: Non labored symmetric respirations, no tachypnea or respiratory distress [] Abdomen: Soft, nondistended, no tenderness palpation. Skin: Warm, dry, no erythema, no rash. [] Back: Unremarkable Extremities: No deformities, range of motion grossly intact, no lower extremity edema [] Neurologic: Alert and oriented X 3, no focal deficits noted. [] Psychologic: Affect normal, judgement normal, mood normal. [] Current Patient Data: Labs: Laboratory Tests Test 06/26/21 08:02 POC Urine HCG, Qualitative hcg negative (Negative) Vital Signs: Vital Signs Date Time Temp Pulse Resp B/P (MAP) Pulse Ox O2 Delivery O2 Flow Rate FiO2 06/26/21 07:45 97.0 110 18 139/84 (102) 99 EKG: EKG: [] Radiology/Procedures: Radiology/Procedures: [] Heart Score: C/O Chest Pain: No Risk Factors: Risk Factors: DM, Current or recent (<one month) smoker, HTN, HLP, family history of CAD, obesity. Risk Scores: Score 0 - 3: 2.5% MACE over next 6 weeks - Discharge Home Score 4 - 6: 20.3% MACE over next 6 weeks - Admit for Clinical Observation Score 7 - 10: 72.7% MACE over next 6 weeks - Early Invasive Strategies Course & Med Decision Making: Course & Med Decision Making Pertinent Labs and Imaging studies reviewed. (See chart for details) [] Dragon Disclaimer: Dragon Disclaimer: This electronic medical record was generated, in whole or in part, using a voice recognition dictation system. Departure Departure: Impression: Primary Impression: Exposure to STD Disposition: HOME / SELF CARE / HOMELESS Condition: STABLE Referrals: VÍCTOR MILLER MD (PCP) Patient Instructions: Sexually Transmitted Disease Additional Instructions: Follow-up with [facility] [address], [place] [address] Scripts Doxycycline Hyclate (DOXYCYCLINE HYCLATE) 100 Mg Tablet.dr 1 TAB PO BID for antibiotic, #14 TAB Prov: FRANCOISE BAZAN MD 06/26/21 FRANCOISE BAZAN MD Jun 26, 2021 08:10
[2021-06-26] MEDS ORDERED: DOXYCYCLINE HYCLATE 100 MG TABLET PO ONE (08:15)
[2021-06-26] MEDS ORDERED: cefTRIAXone IM 500 MG VIAL. IM ONE (08:15)
[2021-06-26 08:26] LABS: BACTERIA,URINE 0 /HPF (0-FEW); CLARITY,URINE CLEAR; COLOR,URINE YELLOW; GLUCOSE,URINE NEG (NEG); NITRITE,URINE NEG (NEG); RBC,URINE OCC /HPF (0-2); SQUAMOUS EPITHELIAL CELL,UR MANY /LPF; UROBILINOGEN,URINE 0.2 mg/dL (0.2 mg/dL)
[2021-06-26 08:27] LABS: HYALINE CASTS, URINE OCC /HPF
[2021-06-26 09:08] VITALS: BP 142/89
[2021-06-26] MEDS ORDERED: DOXY-96 PO (09:11)
== END 2021-06-26 09:15 | disposition home or self-care (01) ==
LOC: ER 07:32
DX: Z20.2 Contact with and (suspected) exposure to infections with a predominantly sexual mode of transmission (principal); I10 Essential (primary) hypertension; I25.10 Atherosclerotic heart disease of native coronary artery without angina pectoris; F17.210 Nicotine dependence, cigarettes, uncomplicated
CPT/HCPCS: 81001; 81025; 96372; 99283; J0696; Q0111; 87491; 87591